=== PATIENT | male | born 1970 | race Two or more races ===

== ENCOUNTER 2022-04-06 11:43 | Inpatient (IN) | payer SELFPAY ==
[2022-04-06] VITALS (23 sets, daily range): BP systolic 107–130; BP diastolic 51–72
[~2022-04-06] VITALS: Ht 177.8 cm; Wt 90.9 kg
[2022-04-06] MEDS ORDERED: PANTOPRAZOLE 40 MG/10 ML VIAL INJ IV ONE (12:15)
[2022-04-06 12:58] LABS: Basophils # (auto) 0.1 10 ^3/uL (0-0.2); Eosinophils # (auto) 0 10 ^3/uL (0-0.8); Hematocrit 7.6 % (41.0-53.0); Lymphocytes # (auto) 1.1 10 ^3/uL (0.4-5.4); Mean Corpuscular Volume 68.4 fL (80.0-100.0); Nucleated Red Blood Cells % 0.7 %
[2022-04-06 13:02] LABS: Basophils % (auto) 1.1 % (0.0-2.0); Eosinophils % (auto) 0.1 % (0.0-7.0); Mean Corpuscular Hemoglobin 19.5 pg (28.0-32.0); Mean Corpuscular Hgb Conc. 28.5 g/dL (32.0-36.0); Monocytes # (auto) 0.7 10 ^3/uL (0-1.3); Neutrophils # (auto) 8.8 10 ^3/uL (1.6-8.6); Neutrophils % (auto) 81.8 % (37.0-80.0); Red Blood Cells 1.11 10^6/uL (4.5-5.90); White Blood Cell 10.8 10^3/uL (4.4-10.8)
[2022-04-06 13:09] LABS: INR 1.07 (0.9-1.15); Partial Thromboplastin Time < 20.0 sec (24.6-33.4)
[2022-04-06 13:20] LABS: Hemoglobin 2.2 g/dL (13.5-17.5); Red Cell Distribution Width 23.1 % (11.8-14.3)
[2022-04-06 13:36] LABS: Albumin 2.8 g/dL (3.4-5.0); Calcium 8.5 mg/dL (8.5-10.1); Magnesium 3.8 mg/dL (1.6-2.6); Potassium 4.9 mmol/L (3.5-5.1)
[2022-04-06 13:56] LABS: Bilirubin, Total 0.3 mg/dL (0.2-1.0); Total Protein 5.8 g/dL (6.4-8.2)
[2022-04-06] MEDS ORDERED: ONDANSETRON HCL 4 MG/2 ML VIAL IV ONE (14:15)
[2022-04-06] MEDS ORDERED: MORPHINE SULFATE INJ 2 MG/ml SYRG IV ONE (14:15)
[2022-04-06] MEDS ORDERED: ONDANSETRON HCL 4 MG/2 ML VIAL IV PRN (14:45)
[2022-04-06] MEDS ORDERED: IOHEXOL 300 MG/ML 100ML BOTTLE IJ ONE ×2 (14:51→15:07)
[2022-04-06 15:10] LABS: Urine Bacteria NONE SEEN /hpf (None Seen); Urine Blood Negative /uL (Negative); Urine Hyaline Cast MOD /lpf (0 - 2); Urine Specific Gravity 1.014 (1.001-1.035); Urine WBC <1 /hpf (0 - 3)
[2022-04-06] MEDS: MORPHINE SULFATE INJ 2 MG/ml SYRG IV PRN ×2 (17:37→22:07)
[2022-04-06 21:57] LABS: Hematocrit 13.3 % (41.0-53.0)
[2022-04-06 22:01] LABS: Hemoglobin 4.2 g/dL (13.5-17.5)
[2022-04-06] MEDS: PANTOPRAZOLE 40 MG/10 ML VIAL INJ IV SCH (22:07)
[2022-04-06 22:39] LABS: Ferritin 8.2 ng/mL (10-322)
[2022-04-07] VITALS (69 sets, daily range): BP systolic 105–134; BP diastolic 42–75
[2022-04-07] MEDS: MORPHINE SULFATE INJ 2 MG/ml SYRG IV PRN ×2 (05:37→21:10)
[2022-04-07 08:53] LABS: Basophils # (auto) 0.1 10 ^3/uL (0-0.2); Basophils % (auto) 0.7 % (0.0-2.0); Eosinophils # (auto) 0.1 10 ^3/uL (0-0.8); Eosinophils % (auto) 1.2 % (0.0-7.0); Monocytes # (auto) 0.8 10 ^3/uL (0-1.3); Monocytes % (auto) 9.4 % (0.0-12.0); Neutrophils # (auto) 6.4 10 ^3/uL (1.6-8.6); White Blood Cell 8.2 10^3/uL (4.4-10.8)
[2022-04-07 08:57] LABS: Hematocrit 17.1 % (41.0-53.0); Lymphocytes # (auto) 0.9 10 ^3/uL (0.4-5.4); Lymphocytes % (auto) 10.8 % (10.0-50.0); Mean Corpuscular Hemoglobin 24.4 pg (28.0-32.0); Mean Corpuscular Hgb Conc. 32.5 g/dL (32.0-36.0); Mean Corpuscular Volume 75.1 fL (80.0-100.0); Neutrophils % (auto) 77.9 % (37.0-80.0); Nucleated Red Blood Cells % 0.3 %; Red Blood Cells 2.28 10^6/uL (4.5-5.90); Red Cell Distribution Width 23.8 % (11.8-14.3)
[2022-04-07] MEDS: PANTOPRAZOLE 40 MG/10 ML VIAL INJ IV SCH ×2 (09:15→21:09)
[2022-04-07 09:20] LABS: Hemoglobin 5.6 g/dL (13.5-17.5)
[2022-04-07 09:55] LABS: Potassium 4.1 mmol/L (3.5-5.1)
[2022-04-07 10:18] LABS: Albumin 2.7 g/dL (3.4-5.0); BUN/Creatinine Ratio 35.4; Bilirubin, Total 0.8 mg/dL (0.2-1.0); Calcium 8.5 mg/dL (8.5-10.1); Total Protein 5.4 g/dL (6.4-8.2)
[2022-04-07] MEDS ORDERED: SODIUM FERR GLUC 62.5MG/5ML 125 MG in SODIUM CHL 0.9% 100 ML IV SCH (15:00)
[2022-04-07 15:28] LABS: Hemoglobin 7.7 g/dL (13.5-17.5)
[2022-04-07 15:29] LABS: Hematocrit 23.8 % (41.0-53.0)
[2022-04-07 15:36] LABS: Thyroid Stimulating Hormone 6.42 uIU/mL (0.358-3.74)
[2022-04-07 17:08] LABS: Free T4 (Free Thyroxine) 0.69 ng/dL (0.89-1.76)
[2022-04-07 17:09] LABS: Carcinoembryonic Antigen < 0.50 ng/mL (<5.0 OR =)
[2022-04-08] VITALS (10 sets, daily range): BP systolic 110–125; BP diastolic 58–74
[2022-04-08 01:44] LABS: Hematocrit 27.1 % (41.0-53.0)
[2022-04-08] MEDS: MORPHINE SULFATE INJ 2 MG/ml SYRG IV PRN (02:09)
[2022-04-08 05:10] LABS: Basophils # (auto) 0 10 ^3/uL (0-0.2); Eosinophils # (auto) 0.1 10 ^3/uL (0-0.8); Lymphocytes # (auto) 0.9 10 ^3/uL (0.4-5.4); Monocytes # (auto) 1.3 10 ^3/uL (0-1.3); Neutrophils # (auto) 6.9 10 ^3/uL (1.6-8.6); White Blood Cell 9.2 10^3/uL (4.4-10.8)
[2022-04-08 05:23] LABS: Albumin 2.7 g/dL (3.4-5.0); Calcium 8.3 mg/dL (8.5-10.1); Potassium 3.9 mmol/L (3.5-5.1)
[2022-04-08 05:24] LABS: Basophils % (auto) 0.4 % (0.0-2.0); Eosinophils % (auto) 1.4 % (0.0-7.0); Hematocrit 27.3 % (41.0-53.0); Hemoglobin 9.1 g/dL (13.5-17.5); Lymphocytes % (auto) 9.5 % (10.0-50.0); Mean Corpuscular Hemoglobin 26.1 pg (28.0-32.0); Mean Corpuscular Hgb Conc. 33.3 g/dL (32.0-36.0); Mean Corpuscular Volume 78.2 fL (80.0-100.0); Monocytes % (auto) 13.7 % (0.0-12.0); Nucleated Red Blood Cells % 0.8 %; Red Blood Cells 3.49 10^6/uL (4.5-5.90)
[2022-04-08 05:27] LABS: Bilirubin, Total 1.3 mg/dL (0.2-1.0); Total Protein 5.5 g/dL (6.4-8.2)
[2022-04-08 05:59] LABS: Red Cell Distribution Width 21.3 % (11.8-14.3)
[2022-04-09 08:37] LABS: Folate (Folic Acid) 9.41 ng/mL (5.38-24)
[2022-04-09 10:16] LABS: Hepatitis B Surface Antibody Negative (Negative)
[2022-04-09 10:44] LABS: Hepatitis A Total Antibody Positive (Negative)
[2022-04-09 12:38] LABS: Hepatitis C Antibody Negative (Negative)
== END 2022-04-08 10:05 | disposition home or self-care (01) | DRG 312 ==
LOC: EDBD 11:43 → ER 11:50 → TELE 14:52 → DOU IN ICU 17:17
PROVIDERS: ADMIT Nurse Practitioner Family; ATTEND Nurse Practitioner Family
PROC: 30233N1 Transfusion of Nonautologous Red Blood Cells into Peripheral Vein, Percutaneous Approach (ICD-10-PCS; principal; 2022-04-06)
DX: R55 Syncope and collapse (principal); N17.9 Acute kidney failure, unspecified; E46 Unspecified protein-calorie malnutrition; R53.1 Weakness; Z20.822 Contact with and (suspected) exposure to COVID-19; D64.9 Anemia, unspecified; R74.8 Abnormal levels of other serum enzymes; Z85.831 Personal history of malignant neoplasm of soft tissue; Z85.028 Personal history of other malignant neoplasm of stomach; Z68.28 Body mass index [BMI] 28.0-28.9, adult
CPT/HCPCS: 36415; 36430; 71045; 74177; 80053; 81001; 82040; 82378; 82607; 82728; 82746; 83010; 83540; 83550; 83615; 83735; 84439; 84443; 85014; 85018; 85025; 85045; 85610; 85730; 86301; 86704; 86706; 86708; 86803; 86850; 86880; 86900; 86901; 86920; 87081; 87340; 93005; 96365; 96375; 99291; C9113; G0378; J2405